=== PATIENT | female | born 1945 | race Caucasian/White ===

== ENCOUNTER → 2016-05-25 | Outpatient (CLI) | payer MEDICARE, BC ==
--- NOTE | ~2016-05-25 | MY11 ---
[facility] A Service of [facility] & [facility] RADIOLOGY TEXT RESULTS PATIENT: VINICIO ALCANTARA LOCATION: [facility] : 43 UNIT #: [id number] AGE: [address]: LAKSHMI DAWSON MD SEX: F ORDER DR: [id number] [facility]. [place], [place] [address] [id number] O MR#: [id number] #: [id number] NAME: VINICIO ALCANTARA : 1945 SEX: F STUDY DATE/TIME: 05/25/2016 11:59 UNIT: [facility] ROOM: STUDY DESCRIPTION: MY Mammogram Screening Dig Marcin Attending Physician: Lakshmi Dawson M.D. Referring Physician: Lakshmi Dawson M.D. Ordering Physician: Lakshmi Dawson M.D. Primary Care Physician: Lakshmi Dawson M.D. MEDICAL IMAGING REPORT This report is preliminary unless electronic signature is present EXAM Digital screening mammogram 05/25/2016. HISTORY 70-year-old woman. No risk elevation. Annual screen. COMPARISON Outside mammograms now available date 02/28/2009, 03/02/2010, 04/16/2013 from [facility]. FINDINGS Digital imaging of each breast was completed utilizing screening protocol. Review includes FDA-approved CAD device. Breast parenchyma is fatty replaced. There is no interval occurring breast mass. There are no suspicious microcalcifications and no architectural deformity. IMPRESSION Negative mammogram. Annual screening recommended. Patients over the age of 40 are entered into a reminder system with target due date for the next mammogram. A result letter will also be sent to the patient. BIRADS: 1 Negative. Dictated by... Sharad Green M.D. THIS IS AN ELECTRONICALLY VERIFIED REPORT Sharad Green M.D. at 05/27/2016 8:04 AM Navdeep TD: 05/26/2016 17:01 JOB #: [id number] [facility] A Service of [facility] RADIOLOGY TEXT RESULTS PATIENT: VINICIO ALCANTARA LOCATION: [facility] #: [id number] : 43 UNIT #: [id number] AGE: [address]: LAKSHMI DAWSON MD SEX: F ORDER DR: MEDICAL IMAGING REPORT COPY
== END | disposition home or self-care (01) ==
LOC: CWCC 11:40
DX: Z12.31 Encounter for screening mammogram for malignant neoplasm of breast (principal)
CPT/HCPCS: G0202